=== PATIENT | male | born 1950 | race African-American/Black ===

== ENCOUNTER 2017-03-11 18:03 | Emergency (ER) | payer BC, MEDICARE ==
[2017-03-11] MEDS ORDERED: ASPIRIN 81 MG TABLET, CHEWABLE PO ONE (22:27)
--- NOTE | 2017-03-11 22:29 | ER Document Report ---
ED Medical Screen (RME) - General Chief Complaint: High Blood Pressure Stated Complaint: HIGH BLOOD PRESSURE Mode of Arrival: Ambulatory Information source: Patient Notes: Patient reports that around 5 PM today his blood pressure was elevated and systolically was over 200. Patient states that he was compliant with his blood pressure medication today and yesterday although he does not usually take it every day. Patient states that at that time he did have some dizziness with a mild stinging chest pain. Patient states the chest pain is currently resolved. Patient denies any headache, shortness of breath, nausea or vomiting. hx: Hypertension, dyslipidemia I have greeted and performed a rapid initial assessment of this patient. A comprehensive ED assessment and evaluation of the patient, analysis of test results and completion of the medical decision making process will be conducted by additional ED providers. TRAVEL OUTSIDE OF THE [place] IN LAST 30 DAYS: No - Related Data Allergies/Adverse Reactions: [email or web address] Adverse Reaction (Intermediate, Uncoded 03/11/17 18:04) makes heart race Past Medical History - Social History Frequency of alcohol use: None Drug Abuse: None - Past Medical History Cardiac Medical History: Reports: Hx Hypercholesterolemia, Hx Hypertension - Noncompliant with medications (Mar 2017) Denies: Hx Coronary Artery Disease, Hx Heart Attack Pulmonary Medical History: Denies: Hx Asthma, Hx COPD, Hx Pneumonia Neurological Medical History: Denies: Hx Cerebrovascular Accident, Hx Seizures Renal/ Medical History: Denies: Hx Peritoneal Dialysis Musculoskeltal Medical History: Denies Hx Arthritis - Immunizations Hx Diphtheria, Pertussis, Tetanus Vaccination: Yes Physical Exam - Vital signs Vitals: Temp Pulse Resp BP Pulse Ox 98.8 F 107 H 16 174/95 H 96 03/11/17 18:14 03/11/17 18:14 03/11/17 18:14 03/11/17 18:14 03/11/17 18:14 - Cardiovascular Rhythm: Regular Heart sounds: S1 appreciated, S2 appreciated Murmur: No Course - Vital Signs Vital signs: Temp Pulse Resp BP Pulse Ox 98.4 F 80 18 148/96 H 97 03/11/17 21:40 03/11/17 21:40 03/11/17 21:40 03/11/17 21:40 03/11/17 21:40
[2017-03-11 23:28] LABS: APPEARANCE,URINE CLEAR; BILIRUBIN,URINE NEGATIVE (NEGATIVE); COLOR,URINE STRAW; GLUCOSE, URINE NEGATIVE (NEGATIVE); KETONES,URINE NEGATIVE (NEGATIVE); LEUKOCYTE ESTERASE,URINE NEGATIVE (NEGATIVE); NITRITE,URINE NEGATIVE (NEGATIVE); PROTEIN,URINE NEGATIVE (NEGATIVE); URINE SPECIFIC GRAVITY 1.008; UROBILINOGEN,URINE NEGATIVE mg/dL (<2.0)
[2017-03-11 23:29] LABS: ABSOLUTE EOSINOPHILS # (AUTO) 0.3 10^3/uL (0.0-0.6); ABSOLUTE LYMPHOCYTES (AUTO) 1.1 10^3/uL (0.5-4.7); ABSOLUTE MONOCYTES (AUTO) 0.4 10^3/uL (0.1-1.4); ABSOLUTE NEUT (AUTO) 2.9 10^3/uL (1.7-8.2); BASOPHILS % (AUTO) 0.9 % (0-2); HEMATOCRIT 41.6 % (37.9-51.0); HEMOGLOBIN 13.9 g/dL (13.5-17.0); LYMPHOCYTES % (AUTO) 23.9 % (13-45); MEAN CORPUSCULAR HEMOGLOBIN 28.6 pg (27.0-33.4); MEAN CORPUSCULAR HGB CONC 33.5 g/dL (32.0-36.0); MEAN CORPUSCULAR VOLUME 86 fl (80-97); MONOCYTES % (AUTO) 9.3 % (3-13); PLATELET COUNT 178 10^3/uL (150-450); RED BLOOD COUNT 4.87 10^6/uL (4.35-5.55); RED CELL DISTRIBUTION WIDTH 13.6 % (11.5-14.0); SEGMENTED NEUTROPHILS % (AUTO) 59.9 % (42-78); TOTAL CELLS COUNTED % (AUTO) 100 %; WHITE BLOOD COUNT 4.8 10^3/uL (4.0-10.5)
[2017-03-11 23:46] LABS: ALANINE AMINOTRANSFERASE 41 U/L (21-72); ALBUMIN 4.6 g/dL (3.5-5.0); ALKALINE PHOSPHATASE 73 U/L (38-126); ANION GAP 12 (5-19); ASPARTATE AMINO TRANSFERASE 33 U/L (17-59); BILIRUBIN,DIRECT 0.2 mg/dL (0.0-0.4); BILIRUBIN,TOTAL 0.9 mg/dL (0.2-1.3); BLOOD UREA NITROGEN 11 mg/dL (7-20); CALCIUM 10.5 mg/dL (8.4-10.2); CARBON DIOXIDE 25 mmol/L (22-30); CHLORIDE 102 mmol/L (98-107); CREATINE KINASE 708 U/L (55-170); GLUCOSE 101 mg/dL (75-110); MAGNESIUM 1.8 mg/dL (1.6-2.3); POTASSIUM 4.3 mmol/L (3.6-5.0); SODIUM 139.4 mmol/L (137-145); TOTAL PROTEIN 7.4 g/dL (6.3-8.2)
[2017-03-11 23:56] LABS: CREATINE KINASE MB 4.81 ng/mL (<4.55)
[2017-03-11 23:59] LABS: TROPONIN I < 0.012 ng/mL
--- NOTE | 2017-03-12 00:04 | RADIOLOGY REPORT (SQ) ---
EXAM DESCRIPTION: CHEST PA/LAT COMPLETED DATE/TIME: 03/11/2017 10:47 pm REASON FOR STUDY: Chest pain. Elevated blood pressure. COMPARISON: None. EXAM PARAMETERS: NUMBER OF VIEWS: two views TECHNIQUE: Digital Frontal and Lateral radiographic views of the chest acquired. RADIATION DOSE: NA LIMITATIONS: none FINDINGS: LUNGS AND PLEURA: No consolidation, pneumothorax or pleural effusion. MEDIASTINUM AND HILAR STRUCTURES: No obvious masses. HEART AND VASCULAR STRUCTURES: Heart normal size. No evidence for failure. BONES: No acute findings. HARDWARE: None in the chest. IMPRESSION: No acute radiographic finding in the chest. TECHNICAL DOCUMENTATION: JOB ID: [id number] [employer]- All Rights Reserved
--- NOTE | 2017-03-12 00:43 | ER Document Report ---
ED Blood Pressure Problem - General Mode of Arrival: Ambulatory Information source: Patient TRAVEL OUTSIDE OF THE [place] IN LAST 30 DAYS: No <ALEX QUIROGA - Last Filed: 03/12/17 01:59> <SOPHIA MCKEON - Last Filed: 03/12/17 03:55> - General Chief Complaint: High Blood Pressure Stated Complaint: HIGH BLOOD PRESSURE Time Seen by Provider: 03/12/17 00:18 Notes: Patient is a 67-year-old male that presents to the emergency department today with complaints of elevated blood pressures at home. Patient states he is "not good at taking his medications". Patient states he had a "stinging" in his heart. Patient denies a headache, vomiting, diarrhea, or abdominal pain. (ALEX QUIROGA) - Related Data Allergies/Adverse Reactions: javier Adverse Reaction (Intermediate, Uncoded 03/11/17 18:04) makes heart race Past Medical History - General Information source: Patient - Social History Smoking Status: Never Smoker Cigarette use (# per day): No Frequency of alcohol use: None Drug Abuse: None Lives with: Family Family History: Reviewed & Not Pertinent Patient has suicidal ideation: No Patient has homicidal ideation: No - Past Medical History Cardiac Medical History: Reports: Hx Hypercholesterolemia, Hx Hypertension - Noncompliant with medications (Mar 2017) Surgical Hx: Negative - Immunizations Hx Diphtheria, Pertussis, Tetanus Vaccination: Yes Hx Pneumococcal Vaccination: 03/01/11 <ALEX QUIROGA - Last Filed: 03/12/17 01:59> Review of Systems - Review of Systems Constitutional: No symptoms reported EENT: No symptoms reported Cardiovascular: See HPI, Other - elevated blood pressure Respiratory: No symptoms reported Gastrointestinal: denies: Abdominal pain, Diarrhea, Vomiting Genitourinary: No symptoms reported Male Genitourinary: No symptoms reported Musculoskeletal: No symptoms reported Skin: No symptoms reported Hematologic/Lymphatic: No symptoms reported Neurological/Psychological: denies: Headaches -: Yes All other systems reviewed and negative <ALEX QUIROGA - Last Filed: 03/12/17 01:59> Physical Exam <ALEX QUIROGA - Last Filed: 03/12/17 01:59> <SOPHIA MCKEON - Last Filed: 03/12/17 03:55> - Vital signs Vitals: Temp Pulse Resp BP Pulse Ox 98.8 F 107 H 16 174/95 H 96 03/11/17 18:14 03/11/17 18:14 03/11/17 18:14 03/11/17 18:14 03/11/17 18:14 - Notes Notes: Physical Exam: General: Alert, appears well. HEENT: Normocephalic. Atraumatic. PERRL. Extraocular movements intact. Oropharynx clear. Neck: Supple. Non-tender. Respiratory: No respiratory distress. Clear and equal breath sounds bilaterally. Cardiovascular: Regular rate and rhythm. Abdominal: Normal Inspection. Non-tender. No distension. Normal Bowel Sounds. Back: Non-tender. No deformity or step off. Extremities: Moves all four extremities. Upper extremities: Normal inspection. Normal ROM. Lower extremities: Normal inspection. No edema. Normal ROM. Neurological: Normal cognition. AAOx4. Normal speech. Psychological: Normal affect. Normal Mood. Skin: Warm. Dry. Normal color. (ALEX QUIROGA) Course - Laboratory Result Diagrams: 03/11/17 22:58 03/11/17 22:58 <ALEX QUIROGA - Last Filed: 03/12/17 01:59> - Laboratory Result Diagrams: 03/11/17 22:58 03/11/17 22:58 - Diagnostic Test Radiology reviewed: Reports reviewed <SOPHIA MCKEON - Last Filed: 03/12/17 03:55> - Re-evaluation Re-evalutation: 03/12/17 Patient appears well. Blood pressure is resolving with home medications. Do not see any need for adjuvant therapy at this time. Blood work within normal limits. Recommend the patient have repeat troponin but he would prefer to go home and follow-up with his doctor. Stable for discharge. Return if any worsening or concerning symptoms. (SOPHIA MCKEON) - Vital Signs Vital signs: Temp Pulse Resp BP Pulse Ox 98.4 F 80 17 140/81 H 99 03/11/17 21:40 03/11/17 21:40 03/12/17 01:01 03/12/17 01:00 03/12/17 01:01 - Laboratory Laboratory results interpreted by me: 03/11/17 03/11/17 03/11/17 22:58 22:58 22:58 Calcium 10.5 H Creatine Kinase 708 H CK-MB (CK-2) 4.81 H Urine Ascorbic Acid 20 H Discharge <ALEX QUIROGA - Last Filed: 03/12/17 01:59> <SOPHIA MCKEON - Last Filed: 03/12/17 03:55> - Discharge Clinical Impression: High blood pressure Qualifiers: Hypertension type: unspecified Qualified Code(s): I10 - Essential (primary) hypertension Condition: Stable Disposition: HOME, SELF-CARE Instructions: High Blood Pressure ([facility]) Additional Instructions: Please make sure you are taking your blood pressure medication as prescribed. Please follow-up with your doctor when you are able. Scribe Attestation: 03/12/17 03:55 I personally performed the services described in the documentation, reviewed and edited the documentation which was dictated to the scribe in my presence, and it accurately records my words and actions. (SOPHIA MCKEON) Scribe Documentation - Scribe Written by Selwyn:: Selwyn Combs, 03/12/2017 [id number] acting as scribe for :: Vivi <ALEX QUIROGA - Last Filed: 03/12/17 01:59>
[2017-03-12 01:15] VITALS: BP 140/81
--- NOTE | 2017-03-12 07:55 | EKG REPORT ---
SEVERITY:- NORMAL ECG - SINUS RHYTHM : Confirmed by: Nitesh Barrera MD 12-Mar-2017 07:54:39
== END 2017-03-12 01:15 | disposition home or self-care (01) ==
LOC: ER 18:03
DX: I10 Essential (primary) hypertension (principal); R09.89 Other specified symptoms and signs involving the circulatory and respiratory systems; Z91.14 Patient's other noncompliance with medication regimen
CPT/HCPCS: 36415; 71046; 80053; 81001; 82550; 82553; 83735; 84484; 85025; 93005; 93010; 99284